=== PATIENT | female | born 1985 | race African-American/Black ===

== ENCOUNTER 2025-01-22 19:27 | Emergency (ER) | payer MEDICAID, SELFPAY ==
[2025-01-22 19:37] VITALS: BP 130/74; PULSE 78; RESP 16; TEMP 36.3; O2SAT 100; BMI 33.9
--- NOTE | 2025-01-22 20:03 | ED.GENADULT ---
HPI - General Adult General Chief complaint: Psychiatric Symptoms Stated complaint: Crisis Time Seen by Provider: 01/22/25 22:22 Related Data Allergies Allergy/AdvReac Type Severity Reaction Status Date / Time No Known Allergies (No Known Allergy Verified 01/22/25 19:39 Allergies*) [facility] Past Medical History Medical History (Updated 01/23/25 @ 00:00 by Background Daemon) Anxiety Chronic post-traumatic stress disorder (PTSD) Social History Social History Advance Directives: No Advance Directives Information Provided: No Do you have a plan to hurt others: No Plan Physical Exam ED Vital Signs: Vital Signs - 24 hr 01/22/25 19:37 01/22/25 20:35 01/22/25 22:19 Temperature 97.3 F 98.4 F 97.8 F Pulse Rate 78 73 66 Respiratory Rate 16 16 16 Blood Pressure 130/74 162/55 H 138/63 Pulse Oximetry 100 100 98 Oxygen Delivery Method Room Air Room Air Room Air BMI result Body Mass Index 33.9 Course Course Course Narrative: RME: 39-year-old female presents to ED for increased PTSD and anxiety. Patient states not able to see her psychiatrist. Patient denies any suicidal homicidal ideation. Labs care team consult placed. Patient denies any SI or homicidal thoughts. Medical Decision Making Medical Decision Making MDM Narrative: patient declined lab work. Patient states that she was able to talk to a therapist and stated that they are going to figure out something for her. Patient states that they already to be discharged. Patient is not SI or HI, no need for section 12. Per patient's request, patient being discharged at this time, 23:10 Discharge Plan Discharge Clinical Impression: Acute anxiety, Post traumatic stress disorder, Homelessness Patient Disposition: Home, Self-Care Instructions: PTSD (Post Traumatic Stress Disorder) (ED), Anxiety (ED) Additional Instructions: You were seen in our Emergency Department today for treatment of a behavioral health issue. It is important after your visit that you follow up with either your behavioral health provider or a primary care doctor within 7 days.? If you have trouble finding a therapist you can reach out to [address] [phone] The National Suicide and Crisis Lifeline can be reached 7 days a week 24 hours a day.? Call 988 to speak with someone.? Return for any worsening symptoms or concerns such as thoughts of self harm or harm to others. Please call 911 if you feel your mental health is worsening.? Interventions: [place]-Suicide Risk Severity Scale Last Done: 01/22/25 23:56 ED Discharge Assessment Last Done: 01/22/25 23:52 Discharge Date/Time: 01/22/25 23:57 Print Language: Hebrew
[2025-01-22 20:35] VITALS: BP 162/55; PULSE 73; RESP 16; TEMP 36.9; O2SAT 100
--- OUTSIDE RECORDS SUMMARY | 2025-01-22 21:09 | XMS_ITS | Clinical Summary ---
Author Organization [employer] Address [address] [place] [address] Care Team Providers Care Content Designer Name Role Phone Unavailable Primary Care Provider Unavailabl e Social History Tobacco Use Types Packs/Day Years Used Date Smoking Tobacco: Never Assessed Comments Unknown Sex and Gender Information Value Date Recorded Sex Assigned at Not on file Legal Sex Female 9:27 PM EDT Gender Identity Not on file Sexual Orientation Not on file Plan of Treatment Health Maintenance Due Date Last Done Comments Depression Screening 1985 HIV Screening 1985 SDOH Screening 1985 Disability Screening 1985 Alcohol/Substance Use Screening 1997 Tobacco Screening 1997 Family Planning (PISQ) 02/11/2000 HPV Vaccines (1 - 3-dose series) 02/11/2000 Hepatitis C Screening 2003 DTaP/Tdap/Td Vaccines (1 - Tdap) 02/11/2004 Hepatitis B Vaccines (1 of 3 - 19+ 3-dose series) 02/11/2004 Pap Smear 2006 Cervical Cancer Screening 2015 HPV/Cotest 2015 COVID-19 Vaccine (1 - 2024-2 6 season) 2024 Influenza Vaccine (#1) 2024 Zoster Vaccines (1 of 2) 2035 RSV Patients and Pa tients Aged 60 years or older (1 - 1-dose 75+ series) 02/11/2060 HIB Vaccines Aged Out No longer eligi ble based on patient's age to complete this topic Hepatitis A Vaccines Aged Out No long er eligible based on patient's age to complete this topic IPV Vaccines Aged Out No longer eligi ble based on patient's age to complete this topic Meningococcal B Vaccine Aged Out No l onger eligible based on patient's age to complete this topic Meningococcal Vaccine Aged Out No saira chase eligible based on patient's age to complete this topic Pneumococcal Vaccine: Pediat rics (0 to 5 Years) and At-Risk Patients (6 to 49) Years Aged Out No longer eligible b ased on patient's age to complete this topic RSV under 20 months Aged Out No longe r eligible based on patient's age to complete this topic Rotavirus Vaccines Aged Out No longer eligible based on patient's age to complete this topic
--- OUTSIDE RECORDS SUMMARY | 2025-01-22 21:09 | XMS_ITS | Patient Health Record ---
Author Organization [facility] Address [address] [place] [address] Care Team Providers Care Dock Operations Supervisor Name Role Phone NO, PCP Primary Care Provider Babita Piper Unavailable [employer] - DO NOT USE, Mail Pick-up Unavailable Unavailable Reason For Referral No Information Encounters Encounter Location Date Provider Diagnosis [facility] [address], [place] [id number] 08/11/2024 Babita Piper Plan Of Treatment No Information Insurance Providers Payer Name Payer Address Payer Phone Subscriber Number Group Number Insured Name Patient Relationship to Insured Coverage Start Date Coverage End Date [facility] [employer] [address] [place] [address] [phone] [id number] Cyndy Krishnamurthy Self - patient is the insured 5 5
--- OUTSIDE RECORDS SUMMARY | 2025-01-22 21:09 | XMS_ITS | Clinical Summary ---
Author Organization [facility] Address [address] [place] [address] Care Team Providers Care Kiln Door Repairer Name Role Phone Ref, Has No Pcp Or Primary Care Provider Unavail able Allergies No known active allergies Social History Tobacco Use Types Packs/Day Years Used Date Smoking Tobacco: Never Assessed Comments Unknown Sex and Gender Information Value Date Recorded Sex Assigned at Female 10/05/2023 8:55 PM EDT Legal Sex Female 8:17 PM EDT Gender Identity Not on file Sexual Orientation Not on file Last Filed Vital Signs Vital Sign Reading Time Taken Comments Blood Pressure 123/70 10/05/2023 8:48 PM EDT Pulse 64 10/05/2023 8:48 PM EDT Temperature 36.8 C (98.3 F) 10/05/2023 8:48 PM EDT Respiratory Rate 19 10/05/2023 8:48 PM EDT Oxygen Saturation 100% 10/05/2023 8:48 PM EDT Inhaled Oxygen Concentration - - Weight 81.6 kg (180 lb) 10/05/2023 8:48 PM EDT Height 157.5 cm (5' 2 ) 10/05/2023 8:48 PM EDT Body Mass Index 32.92 10/05/2023 8:48 PM EDT Plan of Treatment Health Maintenance Due Date Last Done Comments Cervical Cancer Screening 1985 HIV Screening 1985 HPV and Pap Smear 1985 Pap Smear 1985 Varicella Vaccines (1 of 2 - 13+ 2-dose series) 1998 Hepatitis B Vaccines (1 of 3 - 19+ 3-dose series) 02/11/2004 Alcohol/Substance Use Screening 03/05/2024 Influenza Vaccine (#1) 2024 COVID-19 Vaccine ( - 2024-2 6 season) 2024 DTaP,Tdap,and Td Vaccines (2 - Td or Tdap) 03/06/2027 03/06/2017 Pneumococcal Vaccine: Pediat nico (0-5 Years) and At-Risk Patients (6-50 Years) Aged Out No longer eligible b ased on patient's age to complete this topic Insurance [facility] Care Teams Kiln Door Repairer Relationship Specialty Start Date End Date Ref, Has No Pcp Or DO NOT EDIT THIS RECORD VIA PROVIDER ON THE FLY PCP - General Pyrometer Temperature Regulator 10/05/23
[2025-01-22 22:19] VITALS: BP 138/63; PULSE 66; RESP 16; TEMP 36.6; O2SAT 98
--- NOTE | 2025-01-22 22:28 | ED.PSYCH ---
HPI - Psych General Chief Complaint: Psychiatric Symptoms Stated Complaint: Crisis Time Seen by Provider: 01/22/25 22:22 Source: patient Mode of arrival: ambulatory Limitations: no limitations History of Present Illness ED Provider: Dr. Daija Huynh HPI Narrative: Patient comes to the emergency room complaining of ongoing PTSD and anxiety. Patient denies SI or HI. the patient reports being homeless. States that she has been out of her medications for 2 weeks. When I spoke with the patient, patient states that she already talked to triage and the nurse and she refuses to repeat her story. Related Data Allergies Allergy/AdvReac Type Severity Reaction Status Date / Time No Known Allergies (No Known Allergy Verified 01/22/25 19:39 Allergies*) Review of Systems Review of Systems: Unwilling to answer questions Yes Other [facility] Past Medical History Medical History (Updated 01/22/25 @ 22:39 by Daija Huynh MD) Anxiety Chronic post-traumatic stress disorder (PTSD) Social History Social History Advance Directives: No Advance Directives Information Provided: No Do you have a plan to hurt others: No Plan Physical Exam Exam: Exam: Appearance: Alert. Oriented X3. No acute distress. Eyes: Pupils equal, round and reactive to light. ENT: normal voice, no external ears nose abnormality Neck: Normal inspection. Neck supple. No lymph nodes noted. No crepitus CVS: heart rate in the 60s to 70s Respiratory: No respiratory distress. speaking in full sentences Abdomen: no obvious distention Skin: Normal skin color. Normal skin turgor. Extremities: No lower extremity edema. No Lacerations. No Rash Neuro: Oriented X 3. No motor deficit. No sensory deficit. Moving all extremities. No slurred speech. CN 2 through 12 grossly intact Psych: calm, unwilling to explain her situation Vital Signs: Vital Signs: Last Vital Signs Temp 97.8 F 01/22/25 22:19 Pulse 66 01/22/25 22:19 Resp 16 01/22/25 22:19 BP 138/63 01/22/25 22:19 Pulse Ox 98 01/22/25 22:19 O2 Del Method Room Air 01/22/25 22:19 BMI result Body Mass Index 33.9 Course Course Course Narrative: I discussed with the patient at [address] [place] [address] will want to see her lab resolves. Then, the care team by, talk to them. I was informed by the patient's nurse that earlier today, they were at [facility], they were seen by the care team, discharged, since the patient is homeless they are here now. according to the patient's nurse, the patient said that DCF told them that they needed to come to the emergency room to [place] [facility] All of Patient's labs pending CARE pending patient is not si or hi, Section 12 is not indicated at this time. Discharge Plan Discharge Clinical Impression: Acute anxiety, Post traumatic stress disorder Print Language: Spanish
--- NOTE | 2025-01-22 22:30 | PC.NURSE ---
Assumed care pt, presents to the ED for crisis, pt states she is homeless and was told by DCF to come to the ED to find help with getting into a [place] [facility], pt was staying with a friend, but they can't house them any longer, pt states she gets anxiety from being homeless and having an autistic child, [id number],
[2025-01-22 23:52] VITALS: BP 138/63; PULSE 66; RESP 16; TEMP 36.6; O2SAT 98
== END 2025-01-22 23:57 | disposition home or self-care (01) ==
PROVIDERS: Emergency Provider Emergency Medicine
DX: F43.10 Post-traumatic stress disorder, unspecified (principal); F41.9 Anxiety disorder, unspecified; Z59.00 Homelessness unspecified
CPT/HCPCS: 99282; 99283